=== PATIENT | female | born 1975 | race African-American/Black ===

== ENCOUNTER 2017-07-27 19:29 | Emergency (ER) | payer BC ==
[~2017-07-27 19:29] MED LIST: ISOVUE-370 76%-LOCM 1 ML ONE
[2017-07-27 20:27] LABS: #Basophils 0.1 thou/uL (0.0-0.2); #Eosinphils 0.1 thou/uL (0.0-0.7); #Lymphocytes 2.7 thou/uL (1.20-3.40); #Monocytes 0.6 thou/uL (0.11-0.59); #Neutrophils 4.6 thou/uL (1.40-6.50); %Basophils 1.1 % (0.0-1.0); %Lymphocytes 33.6 % (21.0-51.0); %Monocytes 7.4 % (0.0-10.0); %Neutrophils 57.1 % (42.0-75.0); Hemoglobin 12.7 g/dL (12.0-16.0); Mean Corpuscular HGB CONC 32.2 g/dL (32.0-36.0); Mean Corpuscular Hemoglobin 26.9 pg (27.0-31.0); Mean Corpuscular Volume 83.7 fl (81.0-99.0); Mean Platelet Volume 6.3 fL (7.4-10.4); Platelet Count 411 thou/uL (130-400); Red Blood Cell (RBC) Count 4.72 mill/uL (4.20-5.40)
[2017-07-27 20:39] LABS: BHCG - Serum Negative (NEGATIVE); Pregs Control Background? CLEAR/WHITE (CLR/WHITE); Pregs Control Bar Appear? YES (CONTROL BAR)
[2017-07-27 20:43] LABS: ALT (SGPT) 27 U/L (8-55); AST (SGOT) 18 U/L (5-34); Albumin 4.3 g/dL (3.5-5.0); Alkaline Phosphatase 98 U/L (40-150); Anion Gap 14 mmol/L (10-20); BUN (Urea Nitrogen) 7 mg/dL (7.0-18.7); Bilirubin, Total 0.5 mg/dL (0.2-1.2); Calc. Creatinine Clearance 0 mL/min (70-130); Calcium 9.4 mg/dL (7.8-10.44); Carbon Dioxide 24 mmol/L (22-29); Chloride 104 mmol/L (98-107); Estimated GFR-MDRD Greater than 90; Globulin 3.9 g/dL (2.4-3.5); Glucose 78 mg/dL (70-105); Lipase 10 U/L (8-78); Potassium 3.3 mmol/L (3.5-5.1); Protein, Total 8.2 g/dL (6.0-8.3); Sodium 139 mmol/L (136-145)
[2017-07-27 21:57] LABS: Bilirubin Negative (Negative); Blood, Urine Large (Negative); Clarity CLOUDY (Clear); Glucose, Urine (Dipstick) Negative (Negative); Leukocyte Small (Negative); Nitrite Negative (Negative); Protein, Urine (Dipstick) Negative (Neg-Trace); Specific Gravity, Urine 1.014 (1.002-1.036); pH, Urine 6.5 (5.0-9.0)
[2017-07-27 21:58] LABS: Pregnancy Test - Urine (BHCG) Negative (Negative); Pregu Control Background? CLEAR/WHITE (CLR/WHITE); Pregu Control Bar Appear? YES (CONTROL BAR); Specific Gravity 1.014 (1.002-1.036)
[2017-07-27 21:59] LABS: Bacteria/HPF Rare-Few HPF (None Seen); Hyaline Casts/LPF 0-3 HYALINE CAST LPF (0-3 Hyaline); Pathc Cast-AUWi Flag 0.58 (0-2.49)
[2017-07-27 22:00] LABS: Yeast-AUWi Flag 57.2 (0-25.0)
[2017-07-27 22:07] LABS: RBC/HPF 21-50 HPF (0-3)
[2017-07-27] MEDS ORDERED: Morphine 4 MG/ML VIAL ONE (23:23)
[2017-07-27] MEDS ORDERED: Ondansetron HCl/PF 4 MG/2 ML Vial ONE (23:23)
--- NOTE | 2017-07-28 07:42 | ULT ---
PELVIC ULTRASOUND: Date: 07/27/17 HISTORY: Pelvic pain. FINDINGS: Multiple transabdominal sonographic images of the pelvis are obtained. The uterus is prominent in siz e and has a heterogeneous appearance. The uterus measures 10.2 cm x 5.6 cm x 7.3 cm. There are hetero geneous masses seen within the uterus, largest measuring approximately 3.4 cm. Findings are most sugg estive of multiple uterine fibroids. Fibroid uterus was also noted on prior pelvic ultrasound on 07/07 . The endometrial stripe measures 0.4 cm in thickness and there is no fluid or fluid collection seen in the endometrial canal. The ovaries demonstrate a normal sonographic appearance on transabdominal imaging with the right ovar y measuring 2.2 cm x 1.8 cm x 2.2 cm and the left ovary measuring 4.7 cm x 1.6 cm x 1.9 cm. Doppler evaluation of each ovary with spectral analysis and color flow evaluation demonstrates arteri al and venous flow in each ovary. No free fluid is seen in the cul-de-sac. IMPRESSION: 1. Mildly enlarged fibroid uterus. This is a stable finding compared to study on 08/04/15. 2. Normal appearing bilateral ovaries with arterial flow documented in each ovary. POS: [facility]
--- NOTE | 2017-07-28 07:51 | CT ---
CT ABDOMEN AND PELVIS WITH IV CONTRAST: Date: 07/27/17 HISTORY: Lower abdominal pain since Sunday. Associated back pain. Patient states the pain is constant. COMPARISON: None available. FINDINGS: The lung bases are clear. The liver, spleen, pancreas, bilateral adrenal glands, kidneys, abdominal aorta, and urinary bladder demonstrate a normal CT appearance. The uterus is enlarged and lobulated in appearance with hypodense and heterogeneous masses seen withi n the uterus. Findings are most suggestive of multiple uterine fibroids, which were also seen on prio r pelvic ultrasound on today's date, as well as study on 08/04/15. There are loops of small bowel lateral to the descending colon. While this is overall nonspecific, an internal hernia cannot be excluded. There is certainly no evidence of a bowel obstruction. There are scattered colonic diverticula seen without CT evidence of diverticulitis. There is a small amount of retained fecal material seen throughout the colon. The appendix is visualized and is normal in caliber. No free fluid, fluid collection, or lymphadenopathy seen in the abdomen or pelvis. There is a small, fat-containing left inguinal hernia. IMPRESSION: 1. No acute findings in the abdomen or pelvis. 2. Enlarged fibroid uterus. 3. Colonic diverticulosis. 4. No CT evidence of appendicitis. 5. Small, fat-containing umbilical hernia, as well as small, fat-containing left inguinal hernia. 6. Loops of small bowel lateral to the descending colon. This is an overall nonspecific finding but can be seen with internal hernia. There is no evidence of a bowel obstruction. POS: [facility]
== END 2017-07-28 01:14 | disposition home or self-care (01) ==
LOC: ERS 19:29
DX: D25.9 Leiomyoma of uterus, unspecified (principal); I10 Essential (primary) hypertension
CPT/HCPCS: 36415; 74177; 76856; 80053; 81003; 81015; 81025; 83690; 84703; 85025; J2270; J2405